=== PATIENT | male | born 1960 | race Native Hawaiian/Other Pacific Islander ===

== ENCOUNTER → 2016-10-08 08:08 | Outpatient (CLI) | payer BC | END | disposition home or self-care (01) | LOC: AMB 08:08 | DX: Z04.1 Encounter for examination and observation following transport accident (principal) ==

== ENCOUNTER 2022-04-06 08:08 | Outpatient (CLI) | payer BC | END 2022-04-06 19:28 | disposition home or self-care (01) | LOC: US 08:08 | PROVIDERS: ATTEND Nurse Practitioner Family | DX: R74.8 Abnormal levels of other serum enzymes (principal) ==